=== PATIENT | female | born 1955 | race Caucasian/White ===

== ENCOUNTER 2019-07-16 06:27 | Inpatient (IN) | payer MEDICARE, OTHER, SELFPAY ==
[2019-07-05 12:43] VITALS: BMI 32.4
[2019-07-16] VITALS (16 sets, daily range): BP systolic 83–128; BP diastolic 34–74; PULSE 53–71; RESP 14–20; TEMP 35.7–37.4; O2SAT 93–100; BMI 29.7
--- NOTE | 2019-07-16 | DI.RAD.S_ITS ---
PROCEDURE: XR PELVIS 1-2V INDICATIONS: ANT HIP ARTHROPLASTY TECHNIQUE: Intra-operative view of the pelvis and hip acquired. COMPARISON: Preoperative pelvic radiograph 07/06/2019 and postoperative radiographs today subsequently performed. FINDINGS: Right total hip arthroplasty is partially visualized and appears to be in expected position. IMPRESSION: Intraoperative fluoroscopic image of the right total hip arthroplasty. Dictated by: Tucker Lopez M.D. on 07/16/2019 at 10:57 Approved by: Tucker Lopez M.D. on 07/16/2019 at 10:59
--- NOTE | 2019-07-16 06:00 | DI.RAD.S_ITS ---
PROCEDURE: XR PELVIS 1-2V INDICATIONS: post op MELVIN TECHNIQUE: 1 view of the lower pelvis acquired. COMPARISON: [facility], , XR PELVIS 1-2V, 07/16/2019, 9:50. FINDINGS: Bones: Patient is status post right hip arthroplasty, with hardware components in expected positions. The hip joint appears congruent. No displaced pelvic fractures are identified. However, the upper portions of the iliac bones and sacrum are not included on the study. Mild degenerative changes of the left hip are present. Soft tissues: Overlying postoperative changes are noted. There is a soft tissue air and edema are present. No suspicious soft tissue densities. No radiopaque foreign bodies are identified. IMPRESSION: Expected postoperative changes related to a right hip arthroplasty. Dictated by: Dl Hutchison M.D. on 07/16/2019 at 9:54 Approved by: Dl Hutchison M.D. on 07/16/2019 at 9:56
[2019-07-16] MEDS: LACTATED RINGERS 1,000 ML 42 ML IV ×2 (07:01→08:58)
[2019-07-16] MEDS: CELECOXIB 200 MG CAPSULE PO (07:34)
[2019-07-16] MEDS: ACETAMINOPHEN 325 MG TABLET 975 MG PO ×3 (07:34→21:03)
[2019-07-16] MEDS: PREGABALIN 75 MG CAPSULE PO (07:35)
--- NOTE | 2019-07-16 07:41 | PM.PREOP ---
Pre-operative Note Interval Note History & Physical reviewed/Exam performed by Physician: Yes Changes to H&P: No
[2019-07-16] MEDS: CEFAZOLIN 1 GM VIAL IV (07:46)
--- NOTE | 2019-07-16 08:30 | SUR.OPER ---
Head on pillow. Supine on hana table with bilateral legs in hana positioner boots that are attached to hana table leg armature. Arms secured on padded armboard at les than 90 degrees to body
[2019-07-16] MEDS: MORPHINE 4 MG/ML INJ INJ (08:38)
[2019-07-16] MEDS: KETOROLAC 30 MG/ML VIAL IV (08:39)
[2019-07-16] MEDS: TRANEXAMIC ACID 1,000 MG VIAL 1000 MG INJ ×2 (08:59→10:01)
[2019-07-16] MEDS: ROPIVACAINE 0.5% PF 5 MG/ML 20ML AMP 60 ML INJ (09:00)
--- NOTE | 2019-07-16 10:31 | PM.OP.1 ---
Operative Date/Time/Diagnoses Date of procedure: 07/16/19 Time of procedure: 10:32 Pre-op diagnosis: Right hip degenerative joint disease Post-op diagnosis: same Procedure & Clinicians Procedure: Right total hip arthroplasty via direct anterior approach (CPT code 79065 with employee relations assistant) Same procedure as scheduled: Yes Indications: Patient is an 64-year-old female with severe right hip DJD. The patient has pain with activities and at rest, limited ambulation and activity tolerance, difficulties with ADLs, and failure of conservative treatment. We have discussed the nature of condition, treatment options, risks and benefits, and patient elects to proceed with total hip arthroplasty via direct anterior approach and gives informed consent. Surgeon: Cezar Taylor Parachutist/Combatant Diver Qualified: Fiorella Curiel Anesthesia Type: General and Spinal Operative Notes Closure Type: primary Specimen(s): none sent Prosthetic devices, grafts, tissues, transplants, or devices: Acetabulum: Lua and Nephew R3 acetabular component size 56 mm Femoral component: Lua and Nephew Anthology stem size 6 with standard offset Femoral head: 36 mm + 4 Oxinium Estimated Blood Loss (mL): 200 Blood products transfused: none Procedure in detail: Patient brought to the operating room and after satisfactory induction of the anesthetic, administration of IV antibiotics, and administration of tranexamic acid placed supine on the [place] table with both feet secured in the boots and all bony prominences well padded. Right hip and lower extremity prepped draped usual sterile fashion. Longitudinal incision created just beginning lateral and distal to the ASIS. Brought up through the skin and subcutaneous tissues down to the fascia of the TFL which was then incised longitudinally and the muscle stripped posteriorly and retracted. Cobra retractor placed over the superior capsule and a guidepin placed distally. Circumflex vessels identified and cauterized then a capsular incision created and a full inferomedial release was performed with lateral capsule excised. The height of the femoral neck cut was determined with fluoroscopy and femoral neck cut created femoral head removed. Acetabular retractors and placed in sequential acetabular reaming to 55 was performed with an excellent circumferential ream and fit with a trial. Position confirmed a satisfactory with fluoro. Permanent size 56 mm Lua nephew R3 acetabular cup was selected inserted and impacted into position with excellent position and fixation achieved confirmed fluoroscopically. Permanent neutral liner was inserted. Anterior and lateral capsular releases were then completed the leg was maximally externally rotated extended by dropping the leg to the floor and abducting under the other leg. Retractors placed and the proximal femur was entered with a canal finder and then sequential broaching to 6. Excellent fit with the broach and position confirmed with biplane fluoroscopic images. Trial reduction was performed with a 36 mm +4 ball which healed with excellent leg lengths and position fluoroscopically confirmed and the hip was stable to 90? of external rotation. Trial broach was then removed and a permanent size 6 anthology stem was inserted and impacted in position with excellent position and fixation achieved. 36 mm +4 Oxinium head was then attached and hip was reduced with excellent leg length and position of the implants confirmed fluoroscopically and excellent stability of the hip to 80? of external rotation and lateral traction with the bone hook. The foot of the table was also dropped to full extension and there is excellent stability in this position as well. The wound was copiously irrigated and the fascia of the tensor fascia fadi closed with running 1. Vicryl. Periarticular tissues infiltrated with combination of ropivacaine, Toradol, and morphine. Subcutaneous layer closed with 2 O Vicryl skin closed with an intracuticular suture and skin adhesive. Sterile dressings applied. Complications: none Condition: stable Disposition: PACU Plan for aftercare: Patient will be admitted to the acute care góme[facility], and anticipate discharge on postop day 1-2 with follow-up in office in 10-14 days. Outpatient physical therapy will be arranged and patient will gradually increase activity as tolerated. Patient will continue use of postoperative Lovenox for 10 days postop.
[2019-07-16] MEDS: LACTATED RINGERS 1,000 ML 125 ML IV ×2 (11:59→21:02)
[2019-07-16] MEDS: CEFAZOLIN 2 GM/100 ML FROZ.PIGGY IV (15:29)
--- NOTE | 2019-07-16 16:13 | PT.IIE ---
Current Diagnoses Unilateral primary osteoarthritis, right hip (07/16/19) Surgery Performed Operation Date: 07/16/19 07:45 Actual Procedures p Total Hip Arthroplasty/Anterior Approach(Right) - Cezar Taylor MD Surgical History (Last Updated 07/05/19 @ 13:32 by Leanna Santana RN) History of arthroplasty of left shoulder (Acute ~2013) History of carpal tunnel surgery of right wrist (Acute ~2017) History of colonoscopy (Acute) Hx of arthroscopy of right knee (Acute ~2005) Hx of cholecystectomy (Acute ~2006) Hx of shoulder surgery (Acute ~2005) Hx of toe surgery (Acute ~03/2019) Medical History (Last Updated 07/05/19 @ 13:32 by Leanna Santana RN) Asthma (Acute) Chronic back pain (Acute) Depression (Acute) HTN (hypertension) (Acute) Heart burn (Acute) Hives of unknown origin (Acute) Osteoarthritis (Acute) Osteopenia (Acute) Pre-diabetes (Acute) Seasonal allergies (Acute) Skin cancer (Acute) Sleep apnea (Acute) [place] teeth removed (Acute) Physical Therapy Inpatient Evaluation/Re-Eval M1 PT/OT-IP Prior Functional Status Start: 07/16/19 15:21 Freq: NEEDED Status: Active Protocol: Document 07/16/19 15:22 AW (Rec: 07/16/19 16:03 AW [id number]) Medical Review Prior Functional Status Medical History Reviewed Yes Diet/Fluid Consistency Regular Communication Pt has appropriate affect and is able to make needs known. Mobility and Gait Pt has access to a FWW and SPC , but does not typically use either for home or community ambulation. Activities of Daily Living and IADL's Pt reports independence with all functional mobility, ADL's , IADL's. Social History Household Members spouse Living Arrangements House Number of Floors (Floors) One Floor Number of Stairs To Enter/Railing? 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 works ~5 hours/day but is planning to take 2 days off to assist pt at discharge M2 PT-IP Current Condition Start: 07/16/19 15:21 Freq: NEEDED Status: Active Protocol: Document 07/16/19 15:22 AW (Rec: 07/16/19 16:03 AW [id number]) Physical Therapy Current Condition Current Condition Evaluation Date 07/16/19 Treatment Diagnosis R anterior MELVIN, impaired transfers and gait Onset Date 07/16/19 Precautions Anterior Hip Precautions No Hip Extension No Hip External Rotation Weight Bearing Status Weight Bearing Status Weight Bear as Tolerated M3 PT-IP Subjective Start: 07/16/19 15:21 Freq: NEEDED Status: Active Protocol: Document 07/16/19 15:22 AW (Rec: 07/16/19 16:03 AW [id number]) Subjective Physical Therapy Visit Type Type Initial Evaluation Visit Start Time 14:00 Visit Stop Time 14:49 Total Visit Minutes 49 Number of WELDING MACHINE OPERATOR Visits 0 Physical Therapy Visit Comments Patient Comments Pt reports little pain and is agreeable to mobilize with PT Patient Goals Pt hopes to return to her home in [place] with assistance from her . She has an appointment for outpatient PT scheduled for Tuesday. Therapy Pain Assessment Pain When Pain Assessed During Mobility Pain Present Pain Present Pain Reported Location Right Hip Intensity 4 Scale Used Numeric (1 - 10) Description Aching With Movement Pain Management Techniques Apply Cold M4 PT-IP Mobility and Gait Start: 07/16/19 15:21 Freq: NEEDED Status: Active Protocol: Document 07/16/19 15:22 AW (Rec: 07/16/19 16:03 AW [id number]) PT-Bed Mobility Assessment Rolling Type of Rolling Roll to Left Level of Assist Contact Guard Assistance Supine to Sit Supine to Sit Minimal Assistance Sit to Supine Sit to Supine Minimal Assistance Scooting Scooting to Edge of Bed Contact Guard Assistance PT-Transfer Assessment Sit to and From Stand Sit to and from Stand Minimal Assistance Use of Upper Extremities Equipment Transfer Assistive Device Gait Belt Front Wheeled Walker Orthotic/Prosthetic Devices or Brace: No Transfers Transfer Destination Bed Transfer Technique Pt ambulated with FWW from and back to bed Transfer Ability Level of Assist Minimal Assistance Comments Mobility Comments Pt required min A for supine to sit transfer to support the operative leg. Verbal cues required for safe use of assistive device, especially to keep FWW close while preparing to sit. Gait Assessment Gait Gait Assistance Required: Contact Guard Assist Distance (Feet) 20 Able to Maintain Weight Bearing Status Yes During Gait Assistive Devices Assistive Device Gait Belt Front Wheeled Walker Orthotic/Prosthetic Devices or Brace: No Gait Deviations General Gait Pattern Decreased Stride Length Decreased Feet Clearance Step-to Gait Factors Limiting Gait Function Factors Limiting Gait Function Decreased Activity Tolerance Decreased Strength Limited Range of Motion Comments Gait Comments Pt ambulated ~20 feet in and out of room using FWW and requiring CGA. BP monitored throughout session. See assessment for details. PT-Balance Assessment Sitting Balance and Reactions Static Sitting Balance Ability Good Dynamic Sitting Balance Ability Good Standing Balance and Reactions Static Standing Balance Ability Good Dynamic Standing Balance Ability Fair M5 PT-IP Objective Assessments Start: 07/16/19 15:21 Freq: NEEDED Status: Active Protocol: Document 07/16/19 15:22 AW (Rec: 07/16/19 16:03 AW [id number]) Orientation Orientation/Cognition Level of Alertness Alert Orientation Name Age Month Situation Language Function Ability No Deficits Noted Safety Awareness Understands Safety Issues Memory Description No Deficits Noted Comments Pt alert and oriented Gross Range of Motion Upper Extremity ROM Assessment Within Functional Limits Lower Extremity ROM Assessment Within Functional Limits Strength Upper Extremity Strength Assessment Within Functional Limits Lower Extremity Strength Assessment Right Impaired Hip R hip impaired secondary to surgical intervention Coordination Assessment Gross Coordination Gross Coordination WNL Sensation Assessment Sensation Gross Sensation Left LE Impaired Light Touch Impaired Sensation Description Tingling Comments Sensation Comments Pt reports tingling sensation in left foot. Light touch sensation duller on distal LLE at this time. M6 PT-IP Treatment Start: 07/16/19 15:21 Freq: NEEDED Status: Active Protocol: Document 07/16/19 15:22 AW (Rec: 07/16/19 16:03 AW [id number]) Physical Therapy Treatment Exercises Exercises Ankle Pumps Gluteal Sets Quad Sets Heel Slides Education Education Provided Precautions Weight Bearing Status Post-Op Packet Safety M7 PT-IP Assessment and Plan Start: 07/16/19 15:21 Freq: NEEDED Status: Active Protocol: Document 07/16/19 15:22 AW (Rec: 07/16/19 16:03 AW [id number]) PT Summary Assessment and Plan Potential Rehabilitation Potential Excellent Status of Condition at Evaluation Stable Summary Impairments Pain ROM Strength Balance Sensation Bed Mobility Transfers Gait Activity Tolerance Assessment Summary Pt is a pleasant 64yo woman seen on POD0 following R anterior MELVIN. PLOF: Pt was independent with all functional mobility and ADL's. CLOF: Nursing noted low BP upon admission to unit. BP was 96/34 in supine, 102/72 immediately upon sitting up at EOB, and 109/62 after sitting 2 minutes. Upon standing, DBP dropped back to 39, but pt was asymptomatic. After standing 2 minutes, BP was 116 /65. Pt tolerated standing, marching in place, and ambulation 20 feet using FWW with no report of lightheadedness or nausea. Reviewed bed exercises including ankle pumps, quad sets, gluteal sets, and passive/active heel slides. Educated pt on post-op precautions (no hip extension, no external rotation), exercise dosing, and activity pacing. At this time, PT recommendation is for discharge to home environment with spouse assist once cleared by ortho and for follow-up as planned with outpatient PT. Goals Bed Mobility Goal Standby Assistance Transfer Goal Standby Assistance Gait Goal Standby Assistance Gait Distance 100 feet Other Goals Pt will navigate one step with no hand rail and min A for safe entry to her home. Days to Meet Goals 2 Treatment Plan Physical Therapy Treatment Plan Bed Mobility Training Transfer Training Gait Training Therapeutic Exercise Balance Retraining Post Op Education Discharge Planning Hot or Cold Pack Neuromuscular Re-ed Coordination Retraining Manual Therapy Recommendations To Nursing Amount of Assist Needed 1 Person Assist Discharge Recommendations PT Discharge Recommendations Home with Assistance Other Discharge Recommendations Pt notes her FWW may be too short or tall. Plan to advise pt's to bring FWW in to check. Equipment Needed for Home Before Pt may require appropriately- Discharge sized FWW for discharge.
[2019-07-16] MEDS: DULOXETINE 30 MG CAPSULE 90 MG PO (21:05)
[2019-07-16] MEDS: METOPROLOL ER 50 MG TABLET PO (21:05)
[2019-07-16] MEDS: LORATADINE 10 MG TABLET PO (21:06)
[2019-07-16] MEDS: TRAZODONE 50 MG TABLET PO (21:06)
[2019-07-17] VITALS (9 sets, daily range): BP systolic 92–110; BP diastolic 50–68; PULSE 58–67; RESP 16–20; TEMP 36.3–36.6; O2SAT 95–99
[2019-07-17] MEDS: CEFAZOLIN 2 GM/100 ML FROZ.PIGGY IV (00:21)
[2019-07-17] MEDS: PANTOPRAZOLE 20 MG TABLET PO (05:59)
[2019-07-17 06:37] LABS: Hematocrit 26.1 % (36-46); Hemoglobin 9.1 g/dL (12.0-16.0)
[2019-07-17] MEDS: ENOXAPARIN 40 MG/0.4 ML SYRINGE SUBCUT (08:51)
[2019-07-17] MEDS: HYDROMORPHONE 2 MG TABLET PO ×2 (08:51→12:29)
[2019-07-17] MEDS: ACETAMINOPHEN 325 MG TABLET 975 MG PO (08:52)
[2019-07-17] MEDS: SODIUM CHLORIDE 0.9% 500 ML 1000 ML IV (11:32)
[2019-07-17] MEDS: SODIUM CHLORIDE 0.9% FLUSH 10 ML IV (11:32)
--- NOTE | 2019-07-17 11:41 | PT.IPTN ---
Current Diagnoses Unilateral primary osteoarthritis, right hip (07/16/19) Surgery Performed Operation Date: 07/16/19 07:45 Actual Procedures p Total Hip Arthroplasty/Anterior Approach(Right) - Cezar Taylor MD Physical Therapy Treatment Note M2 PT-IP Current Condition Start: 07/16/19 15:21 Freq: NEEDED Status: Active Protocol: Document 07/16/19 15:22 AW (Rec: 07/16/19 16:03 AW [id number]) Physical Therapy Current Condition Current Condition Evaluation Date 07/16/19 Treatment Diagnosis R anterior MELVIN, impaired transfers and gait Onset Date 07/16/19 Precautions Anterior Hip Precautions No Hip Extension No Hip External Rotation Weight Bearing Status Weight Bearing Status Weight Bear as Tolerated M3 PT-IP Subjective Start: 07/16/19 15:21 Freq: NEEDED Status: Active Protocol: Document 07/17/19 11:30 CLB (Rec: 07/17/19 11:41 CLB [id number]) Subjective Physical Therapy Visit Type Type Patient Unavailable Notes Per RN pt getting bolus please wait to see pt.
--- NOTE | 2019-07-17 14:20 | CM.DANOTE ---
DCP/Assessment: Reviewed chart. Patient is a 64yr old female admitted to [facility] for elective right MELVIN performed on 07-16-19. No PCP listed. Primary payor is 1)Medicare 2)[employer]. Met with patient and spouse/Michael at bedside explained CM/SW role. Patient up with therapy during visit. Patient with discharge order for today if cleared by therapy. RN/Mari has call out to Ortho team because patient's BP has been running low. Patient in agreement to d/c either today or tomorrow. Patient has all needed DME in the home and has outpatient therapy scheduled to begin on Tuesday07-20-19. Patient uses CPAP at night. Spouse to provide transport and support at time of d/c. P: Home when stable. ISAÍAS Melendez Discharge Planning/Care Management CM Discharge Assessment Start: 07/17/19 14:17 Freq: Status: Active Protocol: Document 07/17/19 14:18 KJS (Rec: 07/17/19 14:20 KJS [id number]) Discharge Planning Assessment Assigned Cleaning Matron ISAÍAS Melendez Contact Information Brian Rubio (spouse) Advance Directives? No: Declines further information Advance Directives on File No History Provided By Patient Significant Other Medical Record Prior Living Arrangements House Household Members spouse Type of transporation used prior to Drives own vehicle admit Independent with ADL's Yes Is patient alert and oriented? Yes Caregiver for Another No DME Already Rented / Owned FWW / Walker Patient/Family Preference OP PT Therapy Barriers to Discharge No Discharge Plan Home Transportation Arrangement Spouse can provide transport. Referrals Initiated None needed Whiteboard Updated in Patient Room with Yes name and ext. # of Cleaning Matron Review Status In Process Next Review Type Continued Stay Review Pre-Anesthesia Assessment Start: 07/05/19 12:43 Freq: Status: Complete Protocol: Document 07/05/19 12:43 CAB (Rec: 07/05/19 13:45 CAB [id number]) Pre-Anesthesia Assessment Patient Also Known As (ESTELA Eddy Patient Information Reviewed Via Phone Assessment Assessment Completed With Patient Comment No labs/EKG available at time of PAC assessment Primary Care Provider Heike Kurtz Seen Specialist in Last 12 Months Yes Specialist Seen Orthopedist Primary Language Kyrgyz Resp Ther Required No Height 166.37 cm Weight 89.811 kg Body Mass Index (BMI) 32.4 Hearing Ability Normal Visual Assist Glasses Dentition Type Teeth, Natural Present Barriers to Learning None Other Aids Yes: CPAP, security guard Hx Anesthesia Reactions No Hx Family Anesthesia Reaction No Hx Malignant Hyperthermia No Hx Blood Transfusions No Anesthesia Review Requested No alcohol intake former Alcohol Intake Frequency Other: Stopped drinking 10 years ago Smoking Status Never smoker Substance Use Type does not use Pain Present Pain Reported Musculoskeletal Symptoms Abnormal Gait Back Pain Difficulty Walking Joint Pain Limited Range of Motion Muscle Weakness History of Falling (Recent or History of Yes ) Patient is completely paralyzed or No completely immobile Mental Status Oriented to own ability Is patient on oxygen? No Does patient have RAMIREZ/SOB No Hx Sleep Apnea Yes CPAP/BIPAP use prescribed and used routinely Will Bring CPAP/BIPAP DOS Yes Currently Taking a Beta Jorge Yes: Metoprolol Can You Climb a Flight of Stairs Without Yes SOB Hx Chest Pain No Hx SOB No Hx Syncope or Dizziness No Anti-Coagulant Therapy No Has a Slag Production Worker No Cardiac Testing No Hx Pacemaker/ICD No Pacemaker Rep Required? No Cardiac Clearance Received Not Applicable Diet Type At Home Regular Low Carb dysphagia No Bladder Pattern Incontinent Incontinent, Stress Urgency Urinary Catheter Present No Hx Urinary Self Catheterization No Diabetes No: Pre-diabetes Patient No Lactating No Hx Drug Resistant Organism No Presence of External or Internal Medical Yes: CPAP Devices Have you traveled outside the [facility] States in the last 30 days? Marital Status Lives With spouse Prior Living Arrangements House Number of Floors (Floors) One Floor Support System Sibling(s) Spouse Does the Patient Have Assistance After Yes Surgery Patient Discharge Plan Description Return Home Comment Pt advised 1 night length of stay per surgeon's office Feels Safe in Current Environment Yes Been Physically Hurt or Threatened By a No Person in Current Environment Do you have thoughts of harming yourself None or others? Are you currently considering suicide? No Do you have a plan to hurt yourself or No Plan others? Do You Have Any Spiritual Beliefs That No May Affect Your HC Choices? Do You Have Any Cultural Practices That No May Affect Your HC Choices? Who Can We Speak to About Patient's Care Family, friends Identifying Code for Release of Patient Declines to issue Information Health Care Proxy/Next of Kin Michael () Health Care Proxy Emergency Contact Name Michael () Emergency Contact Advance Directives? No: Declines further information Advance Directives on File No Requested Patient Bring Advanced Yes Directives DOS PAC Instructions Bring CPAP/BIPAP Do not shave/clip surgical site Durable medical equipment Medications to take/avoid Nasal antibiotic No ETOH/petroleum product on skin DOS NPO Post-op transportation Pre-surgical wash Sturdy shoes/comfortable clothes Do not bring valuables and remove jewelry
--- NOTE | 2019-07-17 14:52 | PC.NURSE ---
1445 Pt working w/PT/steps. Pt's b/p 90s/50s. Pt had a 500ml NS bolus today with no changes. Pt denies dizziness, is asymptomatic. A call out to BOWEN Salguero x2 to report the B/Ps, no return call as yet. Not sure if PA will want another bolus.
--- NOTE | 2019-07-17 14:58 | PT.IPTN ---
Current Diagnoses Unilateral primary osteoarthritis, right hip (07/16/19) Surgery Performed Operation Date: 07/16/19 07:45 Actual Procedures p Total Hip Arthroplasty/Anterior Approach(Right) - Cezar Taylor MD Physical Therapy Treatment Note M2 PT-IP Current Condition Start: 07/16/19 15:21 Freq: NEEDED Status: Active Protocol: Document 07/16/19 15:22 AW (Rec: 07/16/19 16:03 AW [email or web address]) Physical Therapy Current Condition Current Condition Evaluation Date 07/16/19 Treatment Diagnosis R anterior MELVIN, impaired transfers and gait Onset Date 07/16/19 Precautions Anterior Hip Precautions No Hip Extension No Hip External Rotation Weight Bearing Status Weight Bearing Status Weight Bear as Tolerated M3 PT-IP Subjective Start: 07/16/19 15:21 Freq: NEEDED Status: Active Protocol: Document 07/17/19 13:50 CLB (Rec: 07/17/19 16:06 CLB [email or web address]) Subjective Physical Therapy Visit Type Type Treatment Note Visit Start Time 13:50 Visit Stop Time 14:53 Total Visit Minutes 63 Notes present for CG training. Physical Therapy Visit Comments Patient Comments Pt agreeablel to participate with therapy. Patient Goals Pt hopes to return to her home in [place] with assistance from her . She has an appointment for outpatient PT scheduled for Tuesday. Therapy Pain Assessment Pain When Pain Assessed During Mobility Pain Present Pain Present Pain Reported Location Right Hip Intensity 4 Scale Used Numeric (1 - 10) Pain Management Techniques Apply Cold Modification of Treatment Re-positioning Timing of Activity with Medications M4 PT-IP Mobility and Gait Start: 07/16/19 15:21 Freq: NEEDED Status: Active Protocol: Document 07/17/19 13:50 CLB (Rec: 07/17/19 16:06 CLB [email or web address]) PT-Bed Mobility Assessment Sit to Supine Sit to Supine Minimal Assistance PT-Transfer Assessment Sit to and From Stand Sit to and from Stand Contact Guard Assistance Minimal Assistance 1 Person Assistance Use of Upper Extremities Equipment Transfer Assistive Device Gait Belt Front Wheeled Walker Orthotic/Prosthetic Devices or Brace: No Transfers Transfer Destination Bed Chair Wheelchair Transfer Technique Pt ambulated with FWW from and back to bed Transfer Ability Level of Assist Contact Guard Assistance 1 Person Assistance Use of Upper Extremities Comments Mobility Comments Pt required Min A of RLE during sit-supine. Pt required CGA-Min A for sit-stand from low surface. Gait Assessment Gait Gait Assistance Required: Standby Assistance Contact Guard Assist Distance (Feet) 80 Able to Maintain Weight Bearing Status Yes During Gait Assistive Devices Assistive Device Gait Belt Front Wheeled Walker Orthotic/Prosthetic Devices or Brace: No Gait Deviations General Gait Pattern Decreased Stride Length Decreased Feet Clearance Step-to Gait Factors Limiting Gait Function Factors Limiting Gait Function Decreased Activity Tolerance Decreased Strength Limited Range of Motion Comments Gait Comments Pt ambulated into frey ~50ft. Pt required cues for walker use at beginning but was able to then follow cues for proper walker use. Stair Climbing Assessment Evaluation Level of Assist On Stairs Contact Guard Assistance 1 Person Assistance Devices Stair Climbing Assistive Devices Front Wheel Walker Technique/Endurance Stair Climbing Direction Ascend and Descend Stair Climbing Technique Step to Step Number of Steps Climbed 1 Stair Climbing Set # Repetitions (reps) 2 Comments Stair Climbing Comments Pt able to climb platform step with FWW first with therapist to instruct then able to perform a second ascend/ descend with 's assist. M5 PT-IP Objective Assessments Start: 07/16/19 15:21 Freq: NEEDED Status: Active Protocol: Document 07/16/19 15:22 AW (Rec: 07/16/19 16:03 AW [id number]) Orientation Orientation/Cognition Level of Alertness Alert Orientation Name Age Month Situation Language Function Ability No Deficits Noted Safety Awareness Understands Safety Issues Memory Description No Deficits Noted Comments Pt alert and oriented Gross Range of Motion Upper Extremity ROM Assessment Within Functional Limits Lower Extremity ROM Assessment Within Functional Limits Strength Upper Extremity Strength Assessment Within Functional Limits Lower Extremity Strength Assessment Right Impaired Hip R hip impaired secondary to surgical intervention Coordination Assessment Gross Coordination Gross Coordination WNL Sensation Assessment Sensation Gross Sensation Left LE Impaired Light Touch Impaired Sensation Description Tingling Comments Sensation Comments Pt reports tingling sensation in left foot. Light touch sensation duller on distal LLE at this time. M6 PT-IP Treatment Start: 07/16/19 15:21 Freq: NEEDED Status: Active Protocol: Document 07/17/19 13:50 CLB (Rec: 07/17/19 16:06 CLB [email or web address]) Physical Therapy Treatment Exercises Exercises Ankle Pumps Gluteal Sets Quad Sets Heel Slides Education Education Provided Precautions Weight Bearing Status Post-Op Packet Safety Other Treatments Other Treatment Performed Instructed patient how to get in and out of shower as well as in/out of vehicle. Pt able to recall 2/2 precautions. M7 PT-IP Assessment and Plan Start: 07/16/19 15:21 Freq: NEEDED Status: Active Protocol: Document 07/17/19 13:50 CLB (Rec: 07/17/19 16:06 CLB [email or web address]) PT Summary Assessment and Plan Summary Assessment Summary Pt BP in sitting 91/55, in standing 97/64 pt has no c/o dizziness and was able to ambulate into frey ~80ft. Pt then transferred to with cues for hand placement. Pt climbed platform step with FWW /CGA with able to appropriately assisting her. Pt required Min A with RLE sit -supine (BP in supine 100/56) was present for full tx and was able to assist pt with sit<>stand, stairs and bed mobility. Pt seems able to d/c home with to assist when medically stable. Goals Bed Mobility Goal Standby Assistance Transfer Goal Standby Assistance Gait Goal Standby Assistance Gait Distance 100 feet Other Goals Pt will navigate one step with no hand rail and min A for safe entry to her home. Days to Meet Goals 2 Treatment Plan Physical Therapy Treatment Plan Bed Mobility Training Transfer Training Gait Training Therapeutic Exercise Balance Retraining Post Op Education Discharge Planning Hot or Cold Pack Neuromuscular Re-ed Coordination Retraining Manual Therapy Recommendations To Nursing Amount of Assist Needed 1 Person Assist Discharge Recommendations PT Discharge Recommendations Home with Assistance Equipment Needed for Home Before Pt will get BSC or Discharge seat riser with rails for toilet at home.
--- NOTE | 2019-07-17 16:06 | PM.PNPO.1 ---
Subjective Date Patient Seen: 07/17/19 Time Patient Seen: 12:06 Interval history: Patient is POD#1 s/p right anterior total hip replacement. She has mobilized with physical therapy. Pain is well controlled. She is voiding independently. Denies chest pain, shortness of breath. One episode of vomiting but has tolerated food since. Exam Vital Signs (past 8 hours): - 07/17/19 10:15 07/17/19 10:29 07/17/19 12:00 Temperature 97.9 F Pulse Rate 60 Respiratory Rate 16 Blood Pressure 93/52 L 95/59 L Pulse Oximetry 99 99 07/17/19 12:20 07/17/19 15:45 Temperature 97.6 F Pulse Rate 67 63 Respiratory Rate 18 20 Blood Pressure 94/57 L 100/56 L Pulse Oximetry 98 96 Oxygen Delivery Method Room Air Oxygen Flow Rate 0 Narrative Exam Narrative: 64 year old female resting comfortably in bed. Alert and oriented in no acute distress. Dressing is CDI, intact ankle flexion/extension. Palpable pulses. Calves soft and compressible. Objective Labs Result Diagrams: 07/17/19 06:00 Labs: Laboratory Results - last 24 hr 07/17/19 06:00 Hgb 9.1 L Hct 26.1 L Assessment & Plan Post-op Postoperative Procedures Operation Date: 07/16/19 07:45 Actual Procedures Side Surgeon p Total Hip Arthroplasty/Anterior Approach Right Cezar Taylor MD Continue to mobilize with PT. Continue pain control. Patient unsure if she is ready for the home environment. Will discharge later today if improvement in her home support system. Quality VTE Deep Vein Thrombosis/Pulmonary Embolism Present on Admission: No
--- NOTE | 2019-07-17 16:33 | PC.NURSE ---
Coby shift discharge note: Patient cleared for discharged per PT. Discharge instructions given to patient and spouse. Ambulated to BR with min assist using FWW. CMS intact to RLE. RX given for Lovenox, and instructions for use given. Patient verbalized understanding of instructions, discussed importance of F/U with Surgery in two weeks. Home with via private vehicle.
== END 2019-07-17 17:06 | disposition home or self-care (01) | DRG 470 ==
PROVIDERS: Admitting Provider Orthopaedic Surgery; Visit Provider Orthopaedic Surgery
PROC: 0SR902Z Replacement of Right Hip Joint with Metal on Polyethylene Synthetic Substitute, Open Approach (ICD-10-PCS; CPT 27130; principal; 2019-07-16 07:45)
DX: M16.11 Unilateral primary osteoarthritis, right hip (principal); G47.33 Obstructive sleep apnea (adult) (pediatric); F32.9 Major depressive disorder, single episode, unspecified; M70.61 Trochanteric bursitis, right hip; G56.01 Carpal tunnel syndrome, right upper limb; I10 Essential (primary) hypertension; K21.9 Gastro-esophageal reflux disease without esophagitis; R73.03 Prediabetes
CPT/HCPCS: 72170; 73501; 76000; 85014; 85018; 94760; 94762; 97110; 97116; 97161; 97530; C1776; J0690; J1100; J1650; J1885; J2250; J2270; J2274; J2405; J2704; J2795; J3010